=== PATIENT | female | born 1985 | race American Indian/Alaskan Native ===

== ENCOUNTER 2017-03-24 13:36 | Emergency (ER) | payer SELFPAY ==
--- NOTE | 2017-03-24 22:46 | Emergency Department Report ---
ED Female HPI - General Chief complaint: Urogenital-Female Stated complaint: PAINFUL VAGINA Time Seen by Provider: 03/24/17 21:50 Source: patient Mode of arrival: Ambulatory Limitations: No Limitations - History of Present Illness Initial comments: 32-year-old female past medical history none presents with complaint of 2 days of "itchy vagina". Patient states she used a new vaginal cream which she has not used before and within 30 minutes of using it labia became uncomfortable. Denies diffuse rash no fever no chills no nausea no vomiting. Slight dysuria no increased urinary frequency. Whitish vaginal discharge. Patient states she was using [id number] Monistat with minimal relief of her symptoms. Complaint: vaginal discharge Onset/Timin -: days(s) Are you Now?: No Last Menstrual Period: 03/15/16 EDC: 12/20/16 Associated Symptoms: vaginal discharge - Related Data Previous Rx's Medication Instructions Recorded Last Taken Type Hydrocortisone 0.5% 1 applicatio TP TID #1 tube 03/24/17 Unknown Rx [Hydrocortisone 0.5% CREAM] Nitrofurantoin Monohyd/M-Cryst 100 mg PO BID #14 capsule 03/24/17 Unknown Rx [Macrobid 100 mg Capsule] metroNIDAZOLE [Metronidazole] 500 mg PO BID #14 tablet 03/24/17 Unknown Rx Allergies Allergy/AdvReac Type Severity Reaction Status Date / Time No Known Allergies Allergy Unverified 02/14/16 09:52 ED Review of Systems ROS: Stated complaint: PAINFUL VAGINA Other details as noted in HPI Constitutional: denies: chills, fever Eyes: denies: eye pain, eye discharge, vision change ENT: denies: ear pain, throat pain Respiratory: denies: cough, shortness of breath, wheezing Cardiovascular: denies: chest pain, palpitations Endocrine: no symptoms reported Gastrointestinal: denies: abdominal pain, nausea, diarrhea Genitourinary: dysuria, discharge. denies: urgency Musculoskeletal: denies: back pain, joint swelling, arthralgia Skin: denies: rash, lesions Neurological: denies: headache, weakness, paresthesias Psychiatric: denies: anxiety, depression Hematological/Lymphatic: denies: easy bleeding, easy bruising ED Past Medical Hx - Past Medical History Previous Medical History?: No - Surgical History Past Surgical History?: Yes Additional Surgical History: - Social History Smoking Status: Current Some Day Smoker Substance Use Type: Alcohol - Medications Home Medications: Home Medications Medication Instructions Recorded Confirmed Last Taken Type Hydrocortisone 0.5% 1 applicatio TP TID #1 tube 03/24/17 Unknown Rx [Hydrocortisone 0.5% CREAM] Nitrofurantoin Monohyd/M-Cryst 100 mg PO BID #14 capsule 03/24/17 Unknown Rx [Macrobid 100 mg Capsule] metroNIDAZOLE [Metronidazole] 500 mg PO BID #14 tablet 03/24/17 Unknown Rx ED Physical Exam - General Limitations: No Limitations General appearance: alert, in no apparent distress - Head Head exam: Present: atraumatic, normocephalic - Eye Eye exam: Present: normal appearance, PERRL, EOMI - ENT ENT exam: Present: mucous membranes moist - Neck Neck exam: Present: normal inspection - Respiratory Respiratory exam: Present: normal lung sounds bilaterally. Absent: respiratory distress - Cardiovascular Cardiovascular Exam: Present: regular rate, normal rhythm. Absent: systolic murmur, diastolic murmur, rubs, gallop - GI/Abdominal GI/Abdominal exam: Present: soft, normal bowel sounds - External exam: Present: normal external exam Speculum exam: Present: vaginal discharge Bi-manual exam: Present: normal bi-manual exam - Extremities Exam Extremities exam: Present: normal inspection - Back Exam Back exam: Present: normal inspection - Neurological Exam Neurological exam: Present: alert, oriented X3, CN II-XII intact, normal gait - Expanded Neurological Exam Expanded Patient oriented to: Present: person, place, time Cranial nerves: EOM's Intact: Normal, Facial Sensation: Normal Cerebellar function: Finger to Nose: Normal, Heel to Herrera: Normal, Romberg: Normal Sensory exam: Upper Extremity Light Touch: Normal, Lower Extremity Light Touch: Normal Motor strength exam: RUE: 5, LUE: 5, RLE: 5, LLE: 5 Best Eye Response (Stephanie): (4) open spontaneously Best Motor Response ([place]): (6) obeys commands Best Verbal Response (Stephanie): (5) oriented [place] Total: 15 - Psychiatric Psychiatric exam: Present: normal affect, normal mood - Skin Skin exam: Present: warm, dry, intact, normal color. Absent: rash ED Course Vital Signs 03/24/17 16:37 Temperature 98.5 F Pulse Rate 72 Respiratory 20 Rate Blood Pressure 146/67 O2 Sat by Pulse 100 Oximetry ED Medical Decision Making - Medical Decision Making A/P: Vaginal discharge, vaginal itching 1-topical hydrocortisone, Flagyl 7 day course 2-Macrobid twice a day 7 days 3-follow-up with [facility] and primary care. Chlamydia gonorrhea culture sent, urine cultures Critical care attestation.: If time is entered above; I have spent that time in minutes in the direct care of this critically ill patient, excluding procedure time. ED Disposition Clinical Impression: Vaginal itching, Bacterial vaginosis Disposition: TO HOME OR SELFCARE Is pt being admited?: No Does the pt Need Aspirin: No Condition: Stable Instructions: Bacterial Vaginosis (ED), Urinary Tract Infection in Women (ED) Prescriptions: Hydrocortisone 0.5% [Hydrocortisone 0.5% CREAM] 1 applicatio TP TID #1 tube metroNIDAZOLE [Metronidazole] 500 mg PO BID #14 tablet Nitrofurantoin Monohyd/M-Cryst [Macrobid 100 mg Capsule] 100 mg PO BID #14 capsule Referrals: [facility] [Provider Group] - 3-5 Days [facility] [Outside] - 3-5 Days [facility] [Provider Group] - 3-5 Days Forms: STI Treatment and Prevention Time of Disposition: 23:18
[2017-03-24 23:09] LABS: Bacteria,Urine 1+ /HPF (Negative); Bilirubin,Urine NEG (Negative); Blood,Urine NEG (Negative); Color,Urine Yellow (Yellow); Mucus,Urine FEW /HPF; Nitrite,Urine NEG (Negative); Protein,Urine <15 mg/dL mg/dL (Negative); Urobilinogen,Urine < 2.0 mg/dL (<2.0)
[2017-03-24 23:11] LABS: HCG Qualitative,Urine Negative (Negative)
[2017-03-24 23:41] VITALS: BP 120/80
== END 2017-03-24 23:00 | disposition home or self-care (01) ==
LOC: ED 13:36
DX: N76.0 Acute vaginitis (principal); F17.200 Nicotine dependence, unspecified, uncomplicated
CPT/HCPCS: 81001; 81025; 87210; 87591; 99283

== ENCOUNTER 2017-05-29 04:17 | Emergency (ER) | payer OTHER ==
[2017-05-29 06:11] VITALS: BP 145/85
--- NOTE | 2017-05-29 07:40 | Emergency Department Report ---
ED ENT HPI - General Chief complaint: Earache Stated complaint: LEFT EAR PAIN,SORE THROAT Time Seen by Provider: 05/29/17 07:07 Source: patient Mode of arrival: Ambulatory Limitations: No Limitations - History of Present Illness Initial comments: This is a 32-year-old female nontoxic, well nourished in appearance, no acute signs of distress presents to the ED with c/o of sore throat and earache x2 days. Patient describes sore throat as sensation as swallowing razor blades. Patient denies any hearing loss, hearing changes, difficulty breathing, fever, chills, nausea, vomiting, chest pain or shortness of breath. Patient denies any allergies or significant past medical history. MD complaint: sore throat, ear pain -: days(s) (2) Location: L ear, throat Severity: mild Severity scale (0 -10): 8 Quality: aching Consistency: constant Improves with: none Worsens with: swallowing Associated Symptoms: pain with swallowing, sore throat. denies: fever, cough, gum swelling, toothache, tinnitus, hearing loss, discharge from ear, rhinorrhea - Related Data Previous Rx's Medication Instructions Recorded Last Taken Type Hydrocortisone 0.5% 1 applicatio TP TID #1 tube 03/24/17 Unknown Rx [Hydrocortisone 0.5% CREAM] Nitrofurantoin Monohyd/M-Cryst 100 mg PO BID #14 capsule 03/24/17 Unknown Rx [Macrobid 100 mg Capsule] metroNIDAZOLE [Metronidazole] 500 mg PO BID #14 tablet 03/24/17 Unknown Rx Amoxicillin [Amoxicillin TAB] 875 mg PO BID #20 tablet 05/29/17 Unknown Rx Nystas/Diphen/Xyl Visc/Mylanta 15 ml MM Q4H PRN 10 Days ml 05/29/17 Unknown Rx [Magic Mouthwash] Allergies Allergy/AdvReac Type Severity Reaction Status Date / Time No Known Allergies Allergy Unverified 02/14/16 09:52 ED Dental HPI - General Chief complaint: Earache Stated complaint: LEFT EAR PAIN,SORE THROAT Time Seen by Provider: 05/29/17 07:07 Source: patient Mode of arrival: Ambulatory Limitations: No Limitations - Related Data Previous Rx's Medication Instructions Recorded Last Taken Type Hydrocortisone 0.5% 1 applicatio TP TID #1 tube 03/24/17 Unknown Rx [Hydrocortisone 0.5% CREAM] Nitrofurantoin Monohyd/M-Cryst 100 mg PO BID #14 capsule 03/24/17 Unknown Rx [Macrobid 100 mg Capsule] metroNIDAZOLE [Metronidazole] 500 mg PO BID #14 tablet 03/24/17 Unknown Rx Amoxicillin [Amoxicillin TAB] 875 mg PO BID #20 tablet 05/29/17 Unknown Rx Nystas/Diphen/Xyl Visc/Mylanta 15 ml MM Q4H PRN 10 Days ml 05/29/17 Unknown Rx [Magic Mouthwash] Allergies Allergy/AdvReac Type Severity Reaction Status Date / Time No Known Allergies Allergy Unverified 02/14/16 09:52 ED Review of Systems ROS: Stated complaint: LEFT EAR PAIN,SORE THROAT Other details as noted in HPI Constitutional: denies: chills, fever Eyes: denies: eye pain, eye discharge, vision change ENT: ear pain, throat pain Respiratory: denies: cough, shortness of breath, wheezing Cardiovascular: denies: chest pain, palpitations Endocrine: no symptoms reported Gastrointestinal: denies: abdominal pain, nausea, diarrhea Genitourinary: denies: urgency, dysuria, discharge Musculoskeletal: denies: back pain, joint swelling, arthralgia Skin: denies: rash, lesions Neurological: denies: headache, weakness, paresthesias Psychiatric: denies: anxiety, depression Hematological/Lymphatic: denies: easy bleeding, easy bruising ED Past Medical Hx - Past Medical History Previous Medical History?: Yes - Surgical History Past Surgical History?: No Additional Surgical History: - Social History Smoking Status: Never Smoker - Medications Home Medications: Home Medications Medication Instructions Recorded Confirmed Last Taken Type Hydrocortisone 0.5% 1 applicatio TP TID #1 tube 03/24/17 Unknown Rx [Hydrocortisone 0.5% CREAM] Nitrofurantoin Monohyd/M-Cryst 100 mg PO BID #14 capsule 03/24/17 Unknown Rx [Macrobid 100 mg Capsule] metroNIDAZOLE [Metronidazole] 500 mg PO BID #14 tablet 03/24/17 Unknown Rx Amoxicillin [Amoxicillin TAB] 875 mg PO BID #20 tablet 05/29/17 Unknown Rx Nystas/Diphen/Xyl Visc/Mylanta 15 ml MM Q4H PRN 10 Days ml 05/29/17 Unknown Rx [Magic Mouthwash] ED Physical Exam - General Limitations: No Limitations General appearance: alert, in no apparent distress - Head Head exam: Present: atraumatic, normocephalic - Eye Eye exam: Present: normal appearance, PERRL, EOMI Pupils: Present: normal accommodation - ENT ENT exam: Present: mucous membranes moist, normal external ear exam - Expanded ENT Exam Expanded Ear exam: Present: normal external inspection TM/Canal exam: Erythema: Left TM, Bulging: Left TM Mouth exam: Present: normal external inspection, tongue normal. Absent: drooling, trismus, muffled voice, tongue elevation, laceration Teeth exam: Present: normal inspection Throat exam: Positive: tonsillar erythema, other (uvula midline. No abscess or swelling noted.). Negative: tonsillomegaly, tonsillar exudate, R peritonsillar mass, L peritonsillar mass - Neck Neck exam: Present: normal inspection, full ROM. Absent: tenderness, meningismus, lymphadenopathy, thyromegaly - Respiratory Respiratory exam: Present: normal lung sounds bilaterally. Absent: respiratory distress, wheezes, rales, rhonchi, stridor, chest wall tenderness, accessory muscle use, decreased breath sounds, prolonged expiratory - Cardiovascular Cardiovascular Exam: Present: regular rate, normal rhythm, normal heart sounds. Absent: bradycardia, tachycardia, irregular rhythm, systolic murmur, diastolic murmur, rubs, gallop - GI/Abdominal GI/Abdominal exam: Present: soft, normal bowel sounds - Extremities Exam Extremities exam: Present: normal inspection, full ROM, normal capillary refill - Back Exam Back exam: Present: normal inspection, full ROM - Neurological Exam Neurological exam: Present: alert, oriented X3, normal gait - Psychiatric Psychiatric exam: Present: normal affect, normal mood - Skin Skin exam: Present: warm, dry, intact, normal color. Absent: rash ED Course Vital Signs 05/29/17 05/29/17 05:00 06:06 Temperature 98.3 F 98.3 F Pulse Rate 68 70 Respiratory 18 18 Rate Blood Pressure 142/85 145/85 O2 Sat by Pulse 100 100 Oximetry - Reevaluation(s) Reevaluation #1: 05/29/17 07:41 Patient is speaking in full sentences with no signs of distress noted. ED Medical Decision Making - Medical Decision Making This is a 32-year-old female that presents with left otitis media and pharyngitis. Patient is stable and was examined by me. Vital signs are stable. Patient is discharged with amoxicillin. There is no mastoid tenderness. There is no tragus pain. No ear canal discharge. No tonsillitis. No abscess. Uvula midline. Patient was instructed to Follow-up with a primary care doctor in 3-5 days or if symptoms worsen and continue return to emergency room as soon as possible. At time of discharge, the patient does not seem toxic or ill in appearance. No acute signs of distress noted. Patient agrees to discharge treatment plan of care. No further questions noted by the patient. Critical care attestation.: If time is entered above; I have spent that time in minutes in the direct care of this critically ill patient, excluding procedure time. ED Disposition Clinical Impression: Left otitis media Qualifiers: Otitis media type: unspecified Qualified Code(s): H66.92 - Otitis media, unspecified, left ear Pharyngitis Qualifiers: Pharyngitis/tonsillitis etiology: unspecified etiology Qualified Code(s): J02.9 - Acute pharyngitis, unspecified Disposition: - TO HOME OR SELFCARE Is pt being admited?: No Does the pt Need Aspirin: No Condition: Stable Instructions: Otitis Media (ED), Pharyngitis (ED), Amoxicillin (By mouth) Additional Instructions: Follow-up with a primary care doctor in 3-5 days or if symptoms worsen and continue return to emergency room as soon as possible. Prescriptions: Amoxicillin [Amoxicillin TAB] 875 mg PO BID #20 tablet Nystas/Diphen/Xyl Visc/Mylanta [Magic Mouthwash] 15 ml MM Q4H PRN 10 Days ml PRN Reason: Sore Throat Referrals: PRIMARY CARE, [Referring] - 3-5 Days [facility] [Outside] - 3-5 Days [facility] [Outside] - 3-5 Days ULYSSES COOK MD [Staff Physician] - 3-5 Days Forms: Work/School Release Form(ED)
== END 2017-05-29 07:53 | disposition home or self-care (01) ==
LOC: ED 04:17
DX: J02.9 Acute pharyngitis, unspecified (principal); H66.92 Otitis media, unspecified, left ear
CPT/HCPCS: 99282